=== PATIENT | male | born 1995 | race Caucasian/White ===

== ENCOUNTER 2019-06-17 13:13 | Emergency (ER) | payer BC ==
[~2019-06-17] VITALS: Ht 167.6 cm; Wt 89.8 kg
--- NOTE | 2019-06-17 14:35 | NUR ---
THIS IS A 23 YO M SENT HERE FROM URGENT CARE AFTER XRAY REVEALED GAS POST SUTURING OF LAC ON CHEST. INSTRUCTED TO COME HERE FOR CT. PT RECEIVED LAC ON FENCE AFTER HOPPING LAST NIGHT. VS STABLE. PT IS RESTING ON [employer] W/ CALL LIGHT IN REACH. AWAITING CT.
[2019-06-17 15:24] VITALS: BP 133/73
--- NOTE | 2019-06-17 15:25 | NUR ---
PT TO CT.
--- NOTE | 2019-06-17 15:50 | NUR ---
TESTS RESULTED. PT IS UP FOR RECHECK AT THIS TIME.
--- NOTE | 2019-06-17 16:01 | NUR ---
Patient given discharge instructions and they have confirmed that they understand the instructions. Patient ambulatory with steady gait.
== END 2019-06-17 16:02 | disposition home or self-care (01) ==
LOC: ED 13:52
DX: S21.119A Laceration without foreign body of unspecified front wall of thorax without penetration into thoracic cavity, initial encounter (principal); W18.39XA Other fall on same level, initial encounter; Y93.39 Activity, other involving climbing, rappelling and jumping off; Y92.89 Other specified places as the place of occurrence of the external cause; Y99.8 Other external cause status
CPT/HCPCS: 71250; 99284